=== PATIENT | female | born 1995 | race Caucasian/White ===

== ENCOUNTER 2018-01-04 01:05 | Emergency (ER) | payer MEDICAID ==
[~2018-01-04] VITALS: Ht 157.5 cm; Wt 57.1 kg
[~2018-01-04 01:05] MED LIST: IBUP-1222 PO; OXYC1TAB7 PO
[2018-01-04 01:07] VITALS: BP 116/74
[2018-01-04] MEDS ORDERED: CEFTRIAXONE 250 MG IM ONE (02:00)
[2018-01-04 02:12] LABS: CULTURE INDICATED? YES; HCG UR SG 1.028 (1.003-1.030); MICROSCOPIC AUTO
[2018-01-04 02:42] LABS: CLUE CELLS NONE SEEN (NONE SEEN); WET PREP WBCS MODERATE (FEW)
[2018-01-04] MEDS ORDERED: AZITHROMYCIN 500 MG TABLET ONE (02:46)
[2018-01-04] MEDS ORDERED: CEFTRIAXONE 250 MG ONE (02:46)
[2018-01-04] MEDS ORDERED: FLUCONAZOLE 100 MG TABLET PO ONE (03:00)
[2018-01-04] MEDS ORDERED: AZITHROMYCIN 500 MG TABLET PO ONE (03:00)
[2018-01-04] MEDS ORDERED: FLUCONAZOLE 100 MG TABLET ONE (03:18)
== END 2018-01-04 03:45 | disposition home or self-care (01) ==
LOC: ED 03:24
DX: A56.02 Chlamydial vulvovaginitis (principal); B37.3 Candidiasis of vulva and vagina; N30.90 Cystitis, unspecified without hematuria
CPT/HCPCS: 81001; 81025; 87086; 87147; 87210; 87491; 87591; 87808; 96372; 99284; J0696